=== PATIENT | female | born 1995 | race Caucasian/White ===

== ENCOUNTER 2019-01-21 12:06 | Emergency (ER) | payer MEDICAID ==
[~2019-01-21] VITALS: Ht 162.6 cm; Wt 90.7 kg
[2019-01-21 13:47] VITALS: BP 127/83
== END 2019-01-21 13:47 | disposition home or self-care (01) ==
LOC: ED 12:06
DX: K04.7 Periapical abscess without sinus (principal); K02.9 Dental caries, unspecified

== ENCOUNTER 2019-11-15 08:26 | Emergency (ER) | payer SELFPAY ==
[~2019-11-15] VITALS: Ht 162.6 cm; Wt 68.0 kg
[2019-11-15 08:32] VITALS: Ht 162.6 cm; Wt 68.0 kg
[2019-11-15 10:01] LABS: AMPHETAMINE QUAL UR POSITIVE (See below)
[2019-11-15 10:20] VITALS: BP 113/69
== END 2019-11-15 10:20 | disposition home or self-care (01) ==
LOC: ED 08:26
PROVIDERS: Specialist
DX: M25.531 Pain in right wrist (principal); F12.20 Cannabis dependence, uncomplicated
CPT/HCPCS: A4570; J1885